=== PATIENT | male | born 1985 | race Caucasian/White ===

== ENCOUNTER → 2017-01-23 | Outpatient (CLI) | payer OTHER ==
[~2017-01-23] VITALS: Ht 177.8 cm; Wt 76.7 kg
[~2017-01-23] MED LIST: APAP500 PO; AUGMENTIN 875875 MG PO; CARAFATE 1 GM TA1 G1 PO; CELEBREX 200 M200 MG PO; CIPRO500 MG PO; CLEOCIN HCL150 MG PO; DEXAMETHASONE 44 M1 PO; FLAGYL500 MG PO; HYDROCODONE-AP1 EAC6 PO; IBUPROFEN 800800 M1 PO; IBUPROFEN 800800 MG PO; LORTAB 10-3251 EACH PO; MEDROLDOSEPACK PO; NAPROSYN500 MG PO; NORCO 5-325 TA1 EAC1 PO; NORCO 5-325 TA1 EACH PO; PANTOPRAZOLE SO40 M1 PO; PENICILLIN VK500 MG PO; PERCOCET 10-321 EACH PO; PRILOSEC 20 MG20 MG PO; ROBAXIN 750 MG750 M1 PO; ZANAFLEX4 MG PO; ZOLOFT50 MG
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
[2017-01-23 12:44] VITALS: BP 141/78
== END ==
LOC: PAIN 07:22
DX: M53.3 Sacrococcygeal disorders, not elsewhere classified (principal); M19.90 Unspecified osteoarthritis, unspecified site; M54.5 Low back pain; G89.4 Chronic pain syndrome

== ENCOUNTER → 2017-02-06 | Outpatient (CLI) | payer OTHER ==
[~2017-02-06] VITALS: Ht 177.8 cm; Wt 75.2 kg
--- NOTE | ~2017-02-06 | HPC ---
[facility] [address] [address] PAIN MANAGEMENT CONSULTATION Name: EDNA TORRES [facility]: [facility] [id number] Admission: 02/06/17 Attend Phys: Adiel Thompson DO Discharge: Date of : 81 Report #: [id number] THIS REPORT FOR: //name// CC: [facility] physician/PCP Adiel Thompson The patient is an unfortunate 31-year-old gentleman seen in consultation 01/23/2017 diagnosed with sacroiliac joint dysfunction by clinical exam, mild DJD, lumbar spine on MRI with axial back pain and chronic pain syndrome. At that visit, we prescribed tizanidine for muscle spasm and proceed with bilateral SI joint injection under fluoroscopy. He returns to pain clinic today noting that the SI joint injection did afford relief of his low back/SI pain, perhaps 50% and ongoing. Notes however, pain is now more in the middle of his back. Rates the pain 7/10 and exacerbates with lifting and walking "nothing really alleviates pain." The patient denies any specific radicular or myelopathic symptoms. PHYSICAL EXAMINATION: Shows a 31-year-old gentleman, BMI is 23.8 kilograms per meter squared. Blood pressure is modestly elevated 131/95, pulse 84, respirations are 14. Alert and oriented to person, place and time, judged to be a reasonable historian. Rises from chair using armrest. Gait is slow and subjectively antalgic though gait is actually tandem with preserved and symmetric lower extremity strength. Lumbar flexion is limited and he is tender over the L5-S1 facets. Pain is exacerbated with flexion and some rotation. SI joints were unremarkable. Lumbar flexion is self limited to 80 degrees. Patellar and Achilles reflexes are preserved. Straight leg raise is negative. The wall movement exacerbates low back pain. Ct test is negative. DIAGNOSTIC STUDIES: We reviewed his MRI from 11/26/2016 which does note L5-S1 to have some facet arthropathy with shallow disk protrusion, though this does not really resolving clinically significant L5 radicular symptoms. ASSESSMENT: 1. Symptomatic sacroiliac joint dysfunction by clinical exam and history and symptoms 50% improved following the sacroiliac joint injections. The patient has not yet started physical therapy. 2. Degenerative joint disease lumbar spine by history, axial back pain and nicotine habituation, chronic pain syndrome with new diagnosis of lumbosacral spondylosis (bilateral L5-S1 facet joint generated pain). RECOMMENDATIONS: 1. I have discussed with the patient today about therapeutic option. We again stressed smoking cessation. I suggested increased core exercise and PT. 2. Continue Celebrex, I renewed tizanidine 4 mg half to one tablet 3 times a day with 1 to [address] [place] [address] PAIN MANAGEMENT CONSULTATION Name: EDNA TORRES Room #: REG [facility] [place]#: [id number] Admission: 02/06/17 Attend Phys: Adiel Thompson DO Discharge: Date of : 81 Report #: [id number] 3. Bilateral sacroiliac joint injections under fluoroscopy. 4. Follow simply as needed. PROCEDURE NOTE: Bilateral SI joint injection under fluoroscopy. Fluroscopy time was under 10 seconds. PROCEDURE: After written informed consent was obtained, the patient was taken to the fluoroscopy suite and placed in prone position. After sterile prep and drape, skin wheal with Xylocaine was raised. Two 22-gauge stylet needles were placed to contact posterior aspect of the left L5-S1 and right L5-S1 facet joint. AP and lateral projections showed good needle placement. 40 mg triamcinolone plus 1 mL of 0.5% preservative-free bupivacaine was injected at each site. Both needles removed. The area was cleansed, Band-Aids applied. The patient monitored for an appropriate period of time, discharged in good and stable condition. <ELECTRONICALLY SIGNED> By: Adiel Thompson DO 02/09/17 [id number] Adiel Thompson DO /nt
[2017-02-06 08:40] VITALS: BP 131/95
== END ==
LOC: PAIN 06:41
DX: M53.3 Sacrococcygeal disorders, not elsewhere classified (principal); G89.4 Chronic pain syndrome; M47.816 Spondylosis without myelopathy or radiculopathy, lumbar region; F32.9 Major depressive disorder, single episode, unspecified

== ENCOUNTER → 2017-02-27 | Outpatient (CLI) | payer OTHER ==
[~2017-02-27] VITALS: Ht 177.8 cm; Wt 74.9 kg
[~2017-02-27] MED LIST changes: +CELEBREX 200 M200 M1 PO; +CYMBALTA30 MG PO; +CYMBALTA60 MG PO; +MIRALAX17 GM PO
--- NOTE | ~2017-02-27 | HPC ---
[facility] [place] [address] PAIN MANAGEMENT CONSULTATION Name: EDNA TORRES Room #: REG [facility] [place].#: [id number] Admission: 02/27/17 Attend Phys: Adiel Thompson DO Discharge: Date of : 81 Report #: [id number] THIS REPORT FOR: //name// CC: [facility] physician/PCP Adiel Thompson DATE OF SERVICE: 02/27/2017 The patient is an unfortunate 31-year-old gentleman, last seen in the pain clinic 02/06/2017. He was initially seen in consultation 01/23/2017. Seen for prolonged visit today from 8:40 to 9:05, greater than 50% of this time spent counseling the patient. He complains of ongoing axial back pain. He notes that the SI joint injection at initial visit afforded about 50% relief. The L5-S1 facet joint injections at last visit 02/06/2017 afforded only nominal relief. Returns to pain clinic today complaining of ongoing pain that he rates "10" on a 0-10 visual analog scale. States he is having difficulty with activities of daily living and childcare due to subjective pain. He states mid back pain is unchanged, primarily low back and tailbone. Notes sharp shooting, constant pain that he rates 7 on a 0-10 visual analog scale up to 10 with activity. The patient denies radicular symptoms. Denies bowel or bladder continence changes or myelopathic symptoms. PHYSICAL EXAMINATION: Shows a 31-year-old gentleman, BMI is 23.7 kilograms per meter squared. Blood pressure 128/91, pulse 60, respirations 16. Rises from the chair using armrest. Gait is subjectively antalgic. The lower extremity strength is objectively symmetric at 4-5 to all muscle groups tested. Patellar and Achilles reflexes are symmetric at 1/4. Flexion is self-limited to 80 degrees. Straight leg raise exacerbates a little bit of low back pain, but shows no neural tensioning symptoms. Passive rotation of the hips is unremarkable. Ct test is negative at this time. We again reviewed his MRI from 11/26/2016. It really is fairly unremarkable. There is minimal lumbar dextrocurvature, no significant listhesis. There is a little disk height loss at L5-S1, shallow central disk protrusion with left-sided remodeling. There is minimal bilateral stenosis and minimal facet arthropathy at this level. Again, these do not correlate with specific left L5 radiculopathy. ASSESSMENT: Chronic axial back pain, history of sacroiliac joint dysfunction, lumbosacral spondylosis and complicated grieving, the patient states following of his mother 2 years ago, he has had [place] [address] PAIN MANAGEMENT CONSULTATION Name: EDNA TORRES Room #: REG [facility] [place]#: [id number] Admission: 02/27/17 Attend Phys: Adiel Thompson DO Discharge: Date of : 81 Report #: [id number] RECOMMENDATIONS: Long discussion with the patient today about therapeutic option. We pointed out that opiate analgesics are contraindicated and do not typically show increased function with this group of patients. He is taking appropriate dose of Celebrex 200 mg once a day. Tizanidine was offered, but it caused untoward sedation. He does smoke a little bit, continues to smoke less than a pack a day, was strongly recommended to consider smoking cessation as it is highly associated with axial back pain. Lastly, we discussed use of a selective serotonin reuptake and norepinephrine reuptake inhibitor to help with both complicated grieving anxiety, depression and general widespread pain. I have taken the liberty of writing for Cymbalta 30 mg 1 a day with second prescription to release in 4 weeks for Cymbalta at 60 mg 30 tablets with 2 refills. I would like to see him back in about 2 months to evaluate efficacy of this intervention. The patient discharged in good and stable condition after prolonged visit spent counseling the patient. <ELECTRONICALLY SIGNED> By: Adiel Thompson DO 03/04/17 0758 [id number] Adiel Thompson DO /nt
[2017-02-27 08:44] VITALS: BP 128/91
== END ==
LOC: PAIN 07:00
DX: M47.817 Spondylosis without myelopathy or radiculopathy, lumbosacral region (principal); M53.3 Sacrococcygeal disorders, not elsewhere classified; F41.9 Anxiety disorder, unspecified; F17.200 Nicotine dependence, unspecified, uncomplicated; J32.9 Chronic sinusitis, unspecified